=== PATIENT | female | born 1975 | race Two or more races ===

== ENCOUNTER 2021-03-17 16:05 | Outpatient (CLI) | payer OTHER | END 2021-03-17 16:08 | disposition home or self-care (01) | LOC: LAB 16:05 | PROVIDERS: ATTEND Physical Medicine & Rehabilitation | DX: R05 Cough (principal); R50.9 Fever, unspecified; R06.1 Stridor; R06.02 Shortness of breath; Z03.818 Encounter for observation for suspected exposure to other biological agents ruled out; Z11.52 Encounter for screening for COVID-19; Z20.822 Contact with and (suspected) exposure to COVID-19; M35.89 Other specified systemic involvement of connective tissue; M35.81 Multisystem inflammatory syndrome; J12.82 Pneumonia due to coronavirus disease 2019 ==

== ENCOUNTER 2021-10-20 08:00 | Outpatient (CLI) | payer OTHER | END 2021-10-20 08:30 | disposition home or self-care (01) | LOC: PPH VACUNA 08:00 | PROVIDERS: ATTEND Emergency Medicine Pediatric Emergency Medicine | DX: Z23 Encounter for immunization (principal) ==

== ENCOUNTER 2022-02-23 17:41 | Emergency (ER) | payer OTHER ==
[~2022-02-23] VITALS: Ht 157.5 cm; Wt 81.6 kg
[2022-02-23] MEDS ORDERED: ZESTRIL2.5 MG (17:51)
== END 2022-02-23 21:43 | disposition home or self-care (01) ==
LOC: ER 17:41
DX: R07.89 Other chest pain (principal); I10 Essential (primary) hypertension